=== PATIENT | female | born 1985 | race Two or more races ===

== ENCOUNTER 2018-09-11 04:05 | Emergency (ER) | payer SELFPAY ==
[~2018-09-11] VITALS: Ht 160 cm; Wt 92.1 kg
[~2018-09-11 04:05] MED LIST: ACET-704 PO; IBUP-1060 PO
[2018-09-11 04:29] LABS: BILIRUBIN,URINE NEGATIVE (NEG); CLARITY,URINE CLEAR; COLOR,URINE YELLOW; NITRITE,URINE NEGATIVE (NEG); PROTEIN,URINE NEGATIVE (NEG-TRACE); UROBILINOGEN,URINE 0.2 mg/dL (0.2 mg/dL)
[2018-09-11 04:42] LABS: BASO # 0.1 x10^3/uL (0.0-0.2); BASO % 1 % (0-3); EOS # 0.2 x10^3/uL (0.0-0.7); EOS % 2 % (0-3); HEMOGLOBIN 15.6 g/dL (12.0-15.5); LYMPH # 2.8 x10^3/uL (1.0-4.8); LYMPH % 26 % (24-48); MEAN CORPUSCULAR HEMOGLOBIN 32 pg (25-35); MEAN CORPUSCULAR HGB CONC 35 g/dL (31-37); MEAN CORPUSCULAR VOLUME 92 fL (79-100); MONO # 0.7 x10^3/uL (0.0-1.1); MONO % 7 % (0-9); NEUT # 6.8 x10^3uL (1.8-7.7); NEUT % 65 % (31-73); PLATELET COUNT 336 x10^3/uL (140-400); RED BLOOD COUNT 4.81 x10^6/uL (3.50-5.40); RED CELL DISTRIBUTION WIDTH 13.3 % (11.5-14.5); WHITE BLOOD COUNT 10.5 x10^3/uL (4.0-11.0)
[2018-09-11 04:48] LABS: BACTERIA,URINE FEW /HPF (0-FEW); RBC,URINE 0 /HPF (0-2); SQUAMOUS EPITHELIAL CELL,UR FEW /LPF
[2018-09-11] MEDS ORDERED: IV NORMAL SALINE 1000ML BAG 1,000 ML IV ONE (05:00)
[2018-09-11] MEDS ORDERED: KETOROLAC 15 MG/ML VIAL. IV ONE (05:00)
[2018-09-11] MEDS ORDERED: ONDANSETRON PF 4 MG/2 ML VIAL. IV ONE (05:00)
[2018-09-11] MEDS ORDERED: FAMOTIDINE 20 MG/2 ML VIAL IVP ONE (05:00)
[2018-09-11 05:12] VITALS: BP 106/71
[2018-09-11 05:12] LABS: U PREG PATIENT NEGATIVE (NEG)
--- NOTE | 2018-09-11 05:43 | RAD ---
Examination: CT abdomen pelvis without contrast HISTORY: left flank pain, left upper quadrant abdominal pain COMPARISON: None available TECHNIQUE: Axial CT images of the abdomen pelvis were performed without contrast. Coronal and sagittal reformats are performed Exposure: One or more of the following individualized dose reduction techniques were utilized for this examination: 1. Automated exposure control 2. Adjustment of the mA and/or kV according to patient size 3. Use of iterative reconstruction technique FINDINGS: The bibasilar lungs are clear. No evidence of free air identified in the abdomen. The evaluation of the solid organs is limited due to lack of IV contrast. The evaluation of the bowel is limited due to lack of oral contrast. The visualized noncontrasted liver, spleen, adrenals grossly appears unremarkable. The gallbladder is mildly distended. The stomach is mildly distended. The visualized pancreas grossly appears unremarkable. The small bowel is nondilated. Feces and gas noted in the colon. The appendix is normal. No evidence of intrarenal collecting system calculi identified. No obvious hydronephrosis identified however there appears to be a small 2 mm calcification of the right ureterovesical junction, best visualized on series 2 image 184 likely a right ureterovesical calculus.. Just inferior to the right ureterovesical junction, there is a 5 mm calcification which is most likely pelvic phlebolith or less likely distal right ureteral calculus. Urinary bladder is mildly distended. The caliber of the aorta grossly appears unremarkable. No evidence of lytic bony destructive lesion. IMPRESSION: 1. A 2 mm calcification identified in the right ureterovesical junction probably calculus. Just inferior to the right ureterovesical junction, there is a 5 mm calcification which is most likely pelvic phlebolith or less likely distal right ureteral calculus. Electronically signed by: Nino Anne MD (09/11/2018 5:38 AM) [id number]
[2018-09-11 06:04] LABS: CALCIUM 8.8 mg/dL (8.5-10.1); CREATININE 0.7 mg/dL (0.6-1.0); GFR 98.3; POTASSIUM 4.2 mmol/L (3.5-5.1)
[2018-09-11] MEDS ORDERED: IBUP200T44 PO (06:07)
[2018-09-11] MEDS ORDERED: HYDR-3164 PO (06:07)
[2018-09-11] MEDS ORDERED: ONDA4TAB12 PO (06:07)
[2018-09-11] MEDS ORDERED: TAMS0.4C97 PO (06:07)
--- NOTE | 2018-09-11 06:07 | PHYS DOC ---
Past Medical History Past Medical History: No Pertinent History Past Surgical History: No Surgical History Alcohol Use: None Drug Use: None Adult General Chief Complaint Chief Complaint: ABDOMINAL PAIN HPI HPI Patient is a 32 year old [f__sex] who presents with [] Review of Systems Review of Systems Constitutional: Denies fever or chills [] Eyes: Denies change in visual acuity, redness, or eye pain [] HENT: Denies nasal congestion or sore throat [] Respiratory: Denies cough or shortness of breath [] Cardiovascular: No additional information not addressed in HPI [] GI: Denies abdominal pain, nausea, vomiting, bloody stools or diarrhea [] : Denies dysuria or hematuria [] Musculoskeletal: Denies back pain or joint pain [] Integument: Denies rash or skin lesions [] Neurologic: Denies headache, focal weakness or sensory changes [] Endocrine: Denies polyuria or polydipsia [] All other systems were reviewed and found to be within normal limits, except as documented in this note. Current Medications Current Medications Current Medications Medications (Trade) Dose Ordered Sig/Cristopher Start Time Stop Time Status Last Admin Dose Admin Famotidine (Pepcid Vial) 20 mg 1X ONCE 09/11/18 05:00 09/11/18 05:01 DC 09/11/18 05:02 20 MG Ketorolac Tromethamine (Toradol 15mg Vial) 15 mg 1X ONCE 09/11/18 05:00 09/11/18 05:01 DC 09/11/18 05:02 15 MG Ondansetron HCl (Zofran) 4 mg 1X ONCE 09/11/18 05:00 09/11/18 05:01 DC 09/11/18 05:01 4 MG Sodium Chloride 1,000 ml @ 1,000 mls/hr 1X ONCE 09/11/18 05:00 09/11/18 05:59 DC 09/11/18 05:01 1,000 MLS/HR Allergies Allergies Allergies Coded Allergies Type Severity Reaction Last Updated Verified No Known Drug Allergies 08/10/13 No Physical Exam Physical Exam Constitutional: Well developed, well nourished, no acute distress, non-toxic appearance. [] HENT: Normocephalic, atraumatic, bilateral external ears normal, oropharynx moist, no oral exudates, nose normal. [] Eyes: PERRLA, EOMI, conjunctiva normal, no discharge. [] Neck: Normal range of motion, no tenderness, supple, no stridor. [] Cardiovascular:Heart rate regular rhythm, no murmur [] Lungs & Thorax: Bilateral breath sounds clear to auscultation [] Abdomen: Bowel sounds normal, soft, no tenderness, no masses, no pulsatile masses. [] Skin: Warm, dry, no erythema, no rash. [] Back: No tenderness, no CVA tenderness. [] Extremities: No tenderness, no cyanosis, no clubbing, ROM intact, no edema. [] Neurologic: Alert and oriented X 3, normal motor function, normal sensory function, no focal deficits noted. [] Psychologic: Affect normal, judgement normal, mood normal. [] Current Patient Data Vital Signs Vital Signs Date Time Temp Pulse Resp B/P (MAP) Pulse Ox O2 Delivery O2 Flow Rate FiO2 09/11/18 04:10 97.8 67 22 118/65 (82) 95 Room Air 97.8 Lab Values Laboratory Tests Test 09/11/18 04:06 09/11/18 04:30 Urine Collection Type Unknown Urine Color Yellow Urine Clarity Clear Urine pH 6.0 Urine Specific [place] 1.015 Urine Protein Negative mg/dL (NEG-TRACE) Urine Glucose (UA) Negative mg/dL (NEG) Urine Ketones (Stick) Negative mg/dL (NEG) Urine Blood Negative (NEG) Urine Nitrite Negative (NEG) Urine Bilirubin Negative (NEG) Urine Urobilinogen Dipstick 0.2 mg/dL (0.2 mg/dL) Urine Leukocyte Esterase Small (NEG) Urine RBC 0 /HPF (0-2) Urine WBC 5-10 /HPF (0-4) Urine Squamous Epithelial Cells Few /LPF Urine Bacteria Few /HPF (0-FEW) Urine Mucus Slight /LPF Urine Test Negative (NEG) White Blood Count 10.5 x10^3/uL (4.0-11.0) Red Blood Count 4.81 x10^6/uL (3.50-5.40) Hemoglobin 15.6 g/dL (12.0-15.5) H Hematocrit 44.0 % (36.0-47.0) Mean Corpuscular Volume 92 fL (79-100) Mean Corpuscular Hemoglobin 32 pg (25-35) Mean Corpuscular Hemoglobin Concent 35 g/dL (31-37) Red Cell Distribution Width 13.3 % (11.5-14.5) Platelet Count 336 x10^3/uL (140-400) Neutrophils (%) (Auto) 65 % (31-73) Lymphocytes (%) (Auto) 26 % (24-48) Monocytes (%) (Auto) 7 % (0-9) Eosinophils (%) (Auto) 2 % (0-3) Basophils (%) (Auto) 1 % (0-3) Neutrophils # (Auto) 6.8 x10^3uL (1.8-7.7) Lymphocytes # (Auto) 2.8 x10^3/uL (1.0-4.8) Monocytes # (Auto) 0.7 x10^3/uL (0.0-1.1) Eosinophils # (Auto) 0.2 x10^3/uL (0.0-0.7) Basophils # (Auto) 0.1 x10^3/uL (0.0-0.2) Laboratory Tests 09/11/18 04:30 EKG EKG [] Radiology/Procedures Radiology/Procedures [] Course & Med Decision Making Course & Med Decision Making Pertinent Labs and Imaging studies reviewed. (See chart for details) [] Dragon Disclaimer Dragon Disclaimer This electronic medical record was generated, in whole or in part, using a voice recognition dictation system. Departure Departure Impression: Primary Impression: Kidney stone Disposition: 01 HOME, SELF-CARE Condition: STABLE Referrals: NO PCP (PCP) TONI BROTHERS MD Patient Instructions: Diet for Kidney Stones, Kidney Stones, Hlil-ft-Ybai Scripts Ibuprofen (MOTRIN IB) 200 Mg Tablet 600 MG PO Q6H PRN for PAIN, #20 TAB Prov: RICHIE BENJAMIN DO 09/11/18 Tamsulosin Hcl (FLOMAX) 0.4 Mg Cap.er.24h 1 CAP PO DAILY for 7 Days, #7 CAP 0 Refills Prov: RICHIE BENJAMIN DO 09/11/18 Ondansetron (ONDANSETRON ODT) 4 Mg Tab.rapdis 1 TAB PO PRN Q6-8HRS for VOMITING, #16 TAB Prov: RICHIE BENJAMIN DO 09/11/18 Hydrocodone/Apap 5-325 (NORCO 5-325 TABLET) 1 Each Tablet 1 TAB PO PRN Q6HRS PRN for PAIN, #10 TAB 0 Refills Prov: RICHIE BENJAMIN DO 09/11/18 RICHIE BENJAMIN DO Sep 11, 2018 06:07
[2018-09-11 06:09] LABS: ALBUMIN 3.2 g/dL (3.4-5.0); ALBUMIN/GLOBULIN RATIO 0.8 (1.0-1.7); TOTAL BILIRUBIN 0.3 mg/dL (0.2-1.0); TOTAL PROTEIN 7.1 g/dL (6.4-8.2)
[2018-09-11] MEDS ORDERED: TAMSULOSIN 0.4 MG CAP.ER.24H. PO ONE (06:30)
[2018-09-11] MEDS ORDERED: HYDROcodone/APAP 5/325MG 1 TAB TABLET PO ONE (07:00)
== END 2018-09-11 06:25 | disposition home or self-care (01) ==
LOC: ER 04:05
DX: N20.0 Calculus of kidney (principal)
CPT/HCPCS: 36415; 74176; 80053; 81001; 81025; 83690; 85025; 96374; 96375; 99284; J1885; J2405; J3490; J7030; 87086